=== PATIENT | male | born 2000 | race Caucasian/White ===

== ENCOUNTER 2020-12-10 09:37 | Outpatient (CLI) | payer BC | END 2020-12-10 23:59 | disposition home or self-care (01) | LOC: ROC 09:37 | PROVIDERS: ATTEND Radiology Radiation Oncology | DX: C76.0 Malignant neoplasm of head, face and neck (principal) | CPT/HCPCS: 99204; G0463 ==

== ENCOUNTER 2020-12-19 20:25 | Inpatient (IN) | payer BC ==
[~2020-12-19] VITALS: Ht 175.3 cm; Wt 80.3 kg
--- NOTE | 2020-12-19 21:13 | NUR ---
PT PRESENTS TO ED WITH DIFFICULTY SWALLOWING FROM TUMOR GROWTH. [facility] CALLED AND WANTED PT CHECKED OUT DUE TO FAST GROWTH OF TUMOR. PT IN GOWN ON GURNEY AND PLACED ON CONTINUOUS MONITORING.
--- NOTE | 2020-12-19 21:15 | NUR ---
20 G IV TO RIGHT AC STARTED, LABS DRAWN AND IVR RUNNING. PT RESTING ON [place], DENIES NEEDS AT THIS TIME.
[2020-12-19] MEDS ORDERED: SODIUM CHLORIDE 0.9% 1,000 ML IV ONE (21:30)
[2020-12-19] MEDS ORDERED: SODIUM CHLORIDE FLUSH 10ML SYR IVF ONE (21:30)
[2020-12-19] MEDS ORDERED: DEXAMETHASONE 4 MG/ML, 1ML IVPush ONE (21:30)
[2020-12-19] MEDS ORDERED: DEXAMETHASONE 4 MG/ML, 1ML ONE (21:44)
[2020-12-19 21:48] LABS: MEAN CORPUSCULAR HEMOGLOBIN 28.5 pg (27.5-34.5); MEAN CORPUSCULAR HGB CONC 33.6 g/dL (33.2-36.2); MEAN PLATELET VOLUME 9.6 fL (7.4-10.4); PLATELET COUNT 204 x10^3/uL (130-400); RED BLOOD COUNT 4.34 x10^6/uL (4.38-5.82); RED CELL DISTRIBUTION WIDTH 13.5 % (9.4-14.8)
[2020-12-19 22:01] LABS: ALANINE AMINOTRANSFERASE 188 U/L (12-78); ALBUMIN 2.4 g/dL (3.4-5.0); ANION GAP 9 mmol/L (5-15); CALCIUM 8.9 mg/dL (8.5-10.1); CHLORIDE 100 mmol/L (98-107); CREATININE 0.83 mg/dL (0.7-1.3)
[2020-12-19 22:04] LABS: ALKALINE PHOSPHATASE 555 U/L (45-117); BILIRUBIN,TOTAL 0.5 mg/dL (0.2-1.0); TOTAL PROTEIN 8.3 g/dL (6.4-8.2)
[2020-12-19 22:14] LABS: <PLATELET ESTIMATE> ADEQUATE; <RBC MORPHOLOGY> NORMAL; BAND#(MANUAL) 1.48 x10^3/uL; BANDS%(MANUAL) 14 % (0-7); LYMPH#(MANUAL) 1.38 x10^3/uL (1-3.4); LYMPHS% (MANUAL) 13 % (22-44); METAMYELOCYTES# (MANUAL) 0.42 x10^3/uL (0-0); METAMYELOCYTES% (MANUAL) 4 % (0-1); MONOS#(MANUAL) 0.42 x10^3/uL (0.3-2.7); MONOS% (MANUAL) 4 % (2-9); SEG#(MANUAL) 6.89 x10^3/uL (1.8-6.8); SEGS% (MANUAL) 65 % (42-75)
[2020-12-19 22:15] LABS: <PLT MORPHOLOGY> NORMAL PLT MORPH
--- NOTE | 2020-12-19 22:43 | NUR ---
Pt to be admitted to [facility], room 439. Report called to [facility].
[2020-12-19 22:55] VITALS: BP 119/78
[2020-12-19 22:56] VITALS: BP 119/78
[2020-12-19] MEDS ORDERED: NAPR-685 PO (23:21)
[2020-12-19] MEDS ORDERED: ALPR0.5T7 PO (23:22)
[2020-12-20] MEDS ORDERED: LABETALOL 5MG/ML, 20ML IVPush PRN
[2020-12-20] MEDS ORDERED: ONDANSETRON 2MG/ML, 2ML IVPush PRN
[2020-12-20 03:01] VITALS: BP 120/83
[2020-12-20] MEDS: DEXAMETHASONE 4 MG/ML, 1ML IVPush SCH ×4 (03:08→21:43)
[2020-12-20 08:12] LABS: MEAN CORPUSCULAR HEMOGLOBIN 28.6 pg (27.5-34.5); MEAN CORPUSCULAR HGB CONC 33.7 g/dL (33.2-36.2); MEAN PLATELET VOLUME 9.6 fL (7.4-10.4); PLATELET COUNT 228 x10^3/uL (130-400); RED BLOOD COUNT 4.39 x10^6/uL (4.38-5.82); RED CELL DISTRIBUTION WIDTH 13.3 % (9.4-14.8)
[2020-12-20 08:32] VITALS: BP 125/81
[2020-12-20 08:33] LABS: ALANINE AMINOTRANSFERASE 170 U/L (12-78); ALBUMIN 2.3 g/dL (3.4-5.0); ANION GAP 10 mmol/L (5-15); BILIRUBIN, DIRECT 0.1 mg/dL (0.1-0.2); CALCIUM 9.7 mg/dL (8.5-10.1); CHLORIDE 101 mmol/L (98-107); CREATININE 0.69 mg/dL (0.7-1.3)
[2020-12-20 08:35] LABS: ALKALINE PHOSPHATASE 514 U/L (45-117); BILIRUBIN,INDIRECT 0.3 mg/dL (0.0-2.0); BILIRUBIN,TOTAL 0.4 mg/dL (0.2-1.0); TOTAL PROTEIN 8.3 g/dL (6.4-8.2)
[2020-12-20 09:00] LABS: BAND#(MANUAL) 0.97 x10^3/uL; BANDS%(MANUAL) 7 % (0-7); BASOS#(MANUAL) 0.14 x10^3/uL (0-0.1); BASOS% (MANUAL) 1 % (0-1); EOS#(MANUAL) 0.28 x10^3/uL (0.0-0.4); EOS% (MANUAL) 2 % (1-7); LYMPH#(MANUAL) 1.52 x10^3/uL (1-3.4); LYMPHS% (MANUAL) 11 % (22-44); METAMYELOCYTES# (MANUAL) 1.24 x10^3/uL (0-0); METAMYELOCYTES% (MANUAL) 9 % (0-1); MONOS#(MANUAL) 0.14 x10^3/uL (0.3-2.7); MONOS% (MANUAL) 1 % (2-9); MYELOCYTES# (MANUAL) 0.14 x10^3/uL (0-0); MYELOCYTES% (MANUAL) 1 % (0-0); SEG#(MANUAL) 9.38 x10^3/uL (1.8-6.8); SEGS% (MANUAL) 68 % (42-75)
[2020-12-20 09:01] LABS: <PLATELET ESTIMATE> ADEQUATE; <PLT MORPHOLOGY> NORMAL PLT MORPH; <RBC MORPHOLOGY> NORMAL
[2020-12-20 13:58] VITALS: BP 133/83
[2020-12-20 18:47] VITALS: BP 124/81
[2020-12-20] MEDS: ACETAMINOPHEN 325 MG TABLET PO PRN (19:05)
[2020-12-20] MEDS ORDERED: TRAZODONE 50MG TABLET PO PRN (21:00)
[2020-12-21 01:52] VITALS: BP 142/87
[2020-12-21] MEDS: morphine SULFATE 10 MG/ML, 1ML IVPush PRN ×2 (02:56→07:32)
[2020-12-21] MEDS: DEXAMETHASONE 4 MG/ML, 1ML IVPush SCH ×4 (03:44→21:47)
[2020-12-21 06:46] VITALS: BP 122/79
[2020-12-21] MEDS ORDERED: MIDAZOLAM 1 MG/ML, 5ML ONE ×2 (10:26)
[2020-12-21] MEDS ORDERED: FENTANYL PF 100 MCG/2ML ONE (10:26)
[2020-12-21 13:13] VITALS: BP 143/81
[2020-12-21] MEDS: ACETAMINOPHEN 325 MG TABLET PO PRN (14:01)
[2020-12-21] MEDS ORDERED: ACET325T26 PO (18:17)
[2020-12-21] MEDS ORDERED: TRAZ50TA66 PO (18:17)
[2020-12-21] MEDS ORDERED: DEXA4VIA39 IVPush (18:17)
[2020-12-21] MEDS ORDERED: ALPR0.5T93 PO (18:17)
[2020-12-21] MEDS ORDERED: TRAM50TA2 PO (18:17)
[2020-12-21 18:40] VITALS: BP 135/77
[2020-12-22 00:23] VITALS: BP 136/89
[2020-12-22] MEDS: ACETAMINOPHEN 325 MG TABLET PO PRN (00:41)
[2020-12-22] MEDS: morphine SULFATE 10 MG/ML, 1ML IVPush PRN ×4 (02:41→23:11)
[2020-12-22] MEDS: DEXAMETHASONE 4 MG/ML, 1ML IVPush SCH ×4 (03:42→23:10)
[2020-12-22] MEDS: LORazepam 2 MG/ML, 1ML IVPush PRN ×2 (03:42→22:00)
[2020-12-22 07:05] VITALS: BP 123/81
[2020-12-22 13:01] VITALS: BP 133/86
[2020-12-22] MEDS: OXYcodone IR 5MG TABLET PO PRN (13:52)
[2020-12-22] MEDS: D5%-0.45NACL+KCL 20MEQ 1,000 ML IV SCH (17:58)
[2020-12-22 18:32] LABS: MEAN CORPUSCULAR HGB CONC 33.3 g/dL (33.2-36.2); MEAN PLATELET VOLUME 9.1 fL (7.4-10.4); PLATELET COUNT 279 x10^3/uL (130-400); RED BLOOD COUNT 4.93 x10^6/uL (4.38-5.82); RED CELL DISTRIBUTION WIDTH 13.8 % (9.4-14.8)
[2020-12-22 18:43] LABS: ALANINE AMINOTRANSFERASE 113 U/L (12-78); ALBUMIN 2.7 g/dL (3.4-5.0); ANION GAP 8 mmol/L (5-15); CALCIUM 8.9 mg/dL (8.5-10.1); CHLORIDE 96 mmol/L (98-107)
[2020-12-22 18:54] VITALS: BP 127/81
[2020-12-22 18:54] LABS: ALKALINE PHOSPHATASE 765 U/L (45-117); BILIRUBIN,TOTAL 0.4 mg/dL (0.2-1.0); CREATININE 0.87 mg/dL (0.7-1.3); TOTAL PROTEIN 8.2 g/dL (6.4-8.2)
[2020-12-22 19:36] LABS: <PLATELET ESTIMATE> ADEQUATE; <PLT MORPHOLOGY> NORMAL PLT MORPH; <RBC MORPHOLOGY> NORMAL; BAND#(MANUAL) 2.37 x10^3/uL; BANDS%(MANUAL) 10 % (0-7); LYMPH#(MANUAL) 2.37 x10^3/uL (1-3.4); LYMPHS% (MANUAL) 10 % (22-44); METAMYELOCYTES# (MANUAL) 2.37 x10^3/uL (0-0); METAMYELOCYTES% (MANUAL) 10 % (0-1); MONOS#(MANUAL) 0.95 x10^3/uL (0.3-2.7); MONOS% (MANUAL) 4 % (2-9); MYELOCYTES# (MANUAL) 1.19 x10^3/uL (0-0); MYELOCYTES% (MANUAL) 5 % (0-0); SEG#(MANUAL) 14.46 x10^3/uL (1.8-6.8); SEGS% (MANUAL) 61 % (42-75)
[2020-12-23 00:02] VITALS: BP 118/77
[2020-12-23] MEDS: morphine SULFATE 10 MG/ML, 1ML IVPush PRN ×2 (02:32→23:30)
[2020-12-23 04:48] LABS: MEAN CORPUSCULAR HEMOGLOBIN 28.1 pg (27.5-34.5); MEAN CORPUSCULAR HGB CONC 33.5 g/dL (33.2-36.2); MEAN PLATELET VOLUME 9.2 fL (7.4-10.4); PLATELET COUNT 272 x10^3/uL (130-400); RED BLOOD COUNT 4.83 x10^6/uL (4.38-5.82); RED CELL DISTRIBUTION WIDTH 13.7 % (9.4-14.8)
[2020-12-23 05:01] LABS: ALBUMIN 2.7 g/dL (3.4-5.0); CALCIUM 8.9 mg/dL (8.5-10.1); CHLORIDE 97 mmol/L (98-107)
[2020-12-23] MEDS: DEXAMETHASONE 4 MG/ML, 1ML IVPush SCH ×3 (05:08→16:45)
[2020-12-23] MEDS: D5%-0.45NACL+KCL 20MEQ 1,000 ML IV SCH ×2 (05:08→15:56)
[2020-12-23 05:19] LABS: ALANINE AMINOTRANSFERASE 97 U/L (12-78); ALKALINE PHOSPHATASE 957 U/L (45-117); ANION GAP 9 mmol/L (5-15); BILIRUBIN,TOTAL 0.9 mg/dL (0.2-1.0); CREATININE 0.83 mg/dL (0.7-1.3); TOTAL PROTEIN 8.1 g/dL (6.4-8.2)
[2020-12-23 05:49] LABS: <RBC MORPHOLOGY> NORMAL; BAND#(MANUAL) 3.04 x10^3/uL; BANDS%(MANUAL) 12 % (0-7); EOS#(MANUAL) 0.25 x10^3/uL (0.0-0.4); EOS% (MANUAL) 1 % (1-7); LYMPHS% (MANUAL) 15 % (22-44); METAMYELOCYTES# (MANUAL) 0.51 x10^3/uL (0-0); METAMYELOCYTES% (MANUAL) 2 % (0-1); MONOS#(MANUAL) 1.77 x10^3/uL (0.3-2.7); MONOS% (MANUAL) 7 % (2-9); MYELOCYTES# (MANUAL) 0.25 x10^3/uL (0-0); MYELOCYTES% (MANUAL) 1 % (0-0); SEG#(MANUAL) 15.69 x10^3/uL (1.8-6.8); SEGS% (MANUAL) 62 % (42-75)
[2020-12-23 05:50] LABS: <PLATELET ESTIMATE> ADEQUATE; <PLT MORPHOLOGY> NORMAL PLT MORPH
[2020-12-23 06:59] VITALS: BP 125/80
[2020-12-23] MEDS: LORazepam 2 MG/ML, 1ML IVPush PRN ×2 (09:20→16:34)
[2020-12-23] MEDS ORDERED: [UNRECOGNIZED DRUG - OTHER] IV SCH (11:30)
[2020-12-23] MEDS ORDERED: POTASSIUM CHLORIDE IV SCH ×3 (11:30)
[2020-12-23] MEDS ORDERED: MAGNESIUM SULFATE IV SCH ×3 (11:30)
[2020-12-23] MEDS ORDERED: D5W IV SCH ×2 (11:30)
[2020-12-23] MEDS ORDERED: SODIUM CHLORIDE 0.9% IV SCH ×3 (11:30→17:00)
[2020-12-23] MEDS ORDERED: FILTER 0.22 MICRON FOR MANNITOL IV PRN ×2 (12:00→16:00)
[2020-12-23 12:40] VITALS: BP 115/76
[2020-12-23] MEDS ORDERED: FOSAPREPITANT 150 MG in SODIUM CHLORIDE 0.9% 145 ML IV ONE (14:00)
[2020-12-23] MEDS ORDERED: GRANISETRON 1 MG, DEXAMETHASONE 10 MG in SODIUM CHLORIDE 0.9% 50 ML IV ONE (14:00)
[2020-12-23] MEDS ORDERED: SODIUM CHLORIDE 0.9% IV ONE ×2 (14:30→17:00)
[2020-12-23] MEDS ORDERED: CISPLATIN IV ONE (14:30)
[2020-12-23] MEDS ORDERED: ONDANSETRON 16 MG, DEXAMETHASONE 10 MG in SODIUM CHLORIDE 0.9% 50 ML IVPB ONE (16:00)
[2020-12-23] MEDS ORDERED: DIPHENHYDRAMINE 50 MG/ML, 1ML IV ONE (16:00)
[2020-12-23] MEDS ORDERED: DIPHENHYDRAMINE 50 MG/ML, 1ML IM ONE ×2 (16:00)
[2020-12-23] MEDS ORDERED: [UNRECOGNIZED DRUG - SUPPLY] IV PRN (16:00)
[2020-12-23] MEDS ORDERED: FAMOTIDINE 20 MG/2 ML IVPush ONE (16:00)
[2020-12-23] MEDS ORDERED: CARBOPLATIN IV ONE (17:00)
[2020-12-23] MEDS ORDERED: MANNITOL IV SCH (17:00)
[2020-12-23] MEDS ORDERED: PACLITAXEL 350 MG in SODIUM CHLORIDE 0.9% 500 ML IV ONE (18:00)
[2020-12-23 19:17] VITALS: BP 145/97
[2020-12-23 19:59] VITALS: BP 114/71
[2020-12-23] MEDS: OLANZAPINE 5 MG TABLET PO SCH (21:11)
[2020-12-24] MEDS: D5%-0.45NACL+KCL 20MEQ 1,000 ML IV SCH ×2 (02:31→13:57)
[2020-12-24 02:32] VITALS: BP 116/75
[2020-12-24] MEDS: morphine SULFATE 10 MG/ML, 1ML IVPush PRN ×4 (04:00→19:56)
[2020-12-24 07:54] VITALS: BP 113/73
[2020-12-24 09:03] LABS: MEAN CORPUSCULAR HEMOGLOBIN 28.2 pg (27.5-34.5); MEAN CORPUSCULAR HGB CONC 33.4 g/dL (33.2-36.2); MEAN PLATELET VOLUME 9.1 fL (7.4-10.4); PLATELET COUNT 207 x10^3/uL (130-400); RED BLOOD COUNT 4.57 x10^6/uL (4.38-5.82); RED CELL DISTRIBUTION WIDTH 13.4 % (9.4-14.8)
[2020-12-24 09:13] LABS: ALANINE AMINOTRANSFERASE 78 U/L (12-78); ALBUMIN 2.4 g/dL (3.4-5.0); ANION GAP 12 mmol/L (5-15); CALCIUM 8.3 mg/dL (8.5-10.1); CHLORIDE 100 mmol/L (98-107); CREATININE 0.83 mg/dL (0.7-1.3)
[2020-12-24 09:14] LABS: BILIRUBIN,TOTAL 1.1 mg/dL (0.2-1.0); TOTAL PROTEIN 7.3 g/dL (6.4-8.2)
[2020-12-24 09:26] LABS: METAMYELOCYTES# (MANUAL) 0.68 x10^3/uL (0-0); METAMYELOCYTES% (MANUAL) 4 % (0-1); MONOS#(MANUAL) 0.34 x10^3/uL (0.3-2.7); MONOS% (MANUAL) 2 % (2-9); SEG#(MANUAL) 11.12 x10^3/uL (1.8-6.8); SEGS% (MANUAL) 65 % (42-75)
[2020-12-24 09:27] LABS: BAND#(MANUAL) 2.22 x10^3/uL; BANDS%(MANUAL) 13 % (0-7); LYMPH#(MANUAL) 2.74 x10^3/uL (1-3.4); LYMPHS% (MANUAL) 16 % (22-44)
[2020-12-24 09:28] LABS: <PLATELET ESTIMATE> ADEQUATE; <PLT MORPHOLOGY> NORMAL PLT MORPH; <RBC MORPHOLOGY> NORMAL
[2020-12-24 09:55] LABS: ALKALINE PHOSPHATASE 999 U/L (45-117)
[2020-12-24 12:29] VITALS: BP 113/73
[2020-12-24 19:13] VITALS: BP 115/71
[2020-12-24] MEDS ORDERED: ACETAMINOPHEN 500 MG TABLET PO ONE (19:30)
[2020-12-24] MEDS: LORazepam 2 MG/ML, 1ML IVPush PRN (19:40)
[2020-12-24] MEDS: OLANZAPINE 5 MG TABLET PO SCH (21:09)
[2020-12-25] MEDS: D5%-0.45NACL+KCL 20MEQ 1,000 ML IV SCH
[2020-12-25] MEDS: morphine SULFATE 10 MG/ML, 1ML IVPush PRN ×5 (00:36→23:01)
[2020-12-25 00:41] VITALS: BP 108/70
[2020-12-25] MEDS: LORazepam 2 MG/ML, 1ML IVPush PRN ×3 (04:46→21:20)
[2020-12-25 07:33] VITALS: BP 113/74
[2020-12-25] MEDS ORDERED: ACETAMINOPHEN 500 MG TABLET PO PRN (08:00)
[2020-12-25] MEDS: DEXAMETHASONE 4 MG/ML, 1ML IVPush SCH ×2 (08:35→16:58)
[2020-12-25] MEDS ORDERED: ACETAMINOPHEN 650 MG/20.3 ML UDC ONE ×2 (08:52→09:05)
[2020-12-25] MEDS: D5%-LACTATED RINGERS 1,000 ML IV SCH ×2 (08:55→19:36)
[2020-12-25] MEDS: CEFEPIME 2 GM in DEXTROSE 5% 100 ML IV SCH ×2 (08:55→16:58)
[2020-12-25 09:00] LABS: MEAN CORPUSCULAR HEMOGLOBIN 28.2 pg (27.5-34.5); MEAN CORPUSCULAR HGB CONC 33.5 g/dL (33.2-36.2); PLATELET COUNT 171 x10^3/uL (130-400); RED BLOOD COUNT 4.22 x10^6/uL (4.38-5.82); RED CELL DISTRIBUTION WIDTH 13.1 % (9.4-14.8)
[2020-12-25] MEDS ORDERED: ACETAMINOPHEN 500 MG TABLET PO SCH (09:00)
[2020-12-25 09:05] LABS: ALANINE AMINOTRANSFERASE 125 U/L (12-78); ALBUMIN 2.2 g/dL (3.4-5.0); ANION GAP 9 mmol/L (5-15); CALCIUM 8.7 mg/dL (8.5-10.1); CHLORIDE 99 mmol/L (98-107); CREATININE 0.79 mg/dL (0.7-1.3)
[2020-12-25 09:15] LABS: ALKALINE PHOSPHATASE 967 U/L (45-117); BILIRUBIN,TOTAL 0.9 mg/dL (0.2-1.0); TOTAL PROTEIN 6.8 g/dL (6.4-8.2)
[2020-12-25 09:50] LABS: BAND#(MANUAL) 0.67 x10^3/uL; BANDS%(MANUAL) 6 % (0-7); LYMPH#(MANUAL) 1.79 x10^3/uL (1-3.4); LYMPHS% (MANUAL) 16 % (22-44); METAMYELOCYTES# (MANUAL) 1.01 x10^3/uL (0-0); METAMYELOCYTES% (MANUAL) 9 % (0-1); MONOS#(MANUAL) 0.22 x10^3/uL (0.3-2.7); MONOS% (MANUAL) 2 % (2-9); SEGS% (MANUAL) 67 % (42-75)
[2020-12-25 09:51] LABS: <PLATELET ESTIMATE> ADEQUATE; <RBC MORPHOLOGY> NORMAL; LARGE PLATELETS 1+
[2020-12-25] MEDS: POLYETHYLENE GLYCOL 17 GM PACKET PO SCH ×2 (12:20→21:18)
[2020-12-25 13:12] LABS: MICROSCOPIC INDICATED
[2020-12-25 13:36] VITALS: BP 108/72
[2020-12-25] MEDS ORDERED: ACETAMINOPHEN 650 MG/20.3 ML UDC PO PRN (14:00)
[2020-12-25 19:55] VITALS: BP 115/74
[2020-12-25] MEDS: OLANZAPINE 5 MG TABLET PO SCH (21:20)
[2020-12-26] MEDS: DEXAMETHASONE 4 MG/ML, 1ML IVPush SCH ×3 (01:01→17:45)
[2020-12-26] MEDS: CEFEPIME 2 GM in DEXTROSE 5% 100 ML IV SCH ×3 (01:03→17:44)
[2020-12-26 02:11] VITALS: BP 117/71
[2020-12-26] MEDS: morphine SULFATE 10 MG/ML, 1ML IVPush PRN ×2 (02:17→21:02)
[2020-12-26] MEDS: LORazepam 2 MG/ML, 1ML IVPush PRN ×2 (04:56→20:24)
[2020-12-26] MEDS: D5%-LACTATED RINGERS 1,000 ML IV SCH ×2 (04:56→15:22)
[2020-12-26 07:20] VITALS: BP 112/71
[2020-12-26 09:07] LABS: MEAN CORPUSCULAR HEMOGLOBIN 28.4 pg (27.5-34.5); MEAN CORPUSCULAR HGB CONC 33.7 g/dL (33.2-36.2); MEAN PLATELET VOLUME 8.9 fL (7.4-10.4); PLATELET COUNT 158 x10^3/uL (130-400); RED BLOOD COUNT 4.03 x10^6/uL (4.38-5.82)
[2020-12-26 09:16] LABS: ALBUMIN 2.2 g/dL (3.4-5.0); ANION GAP 7 mmol/L (5-15); CALCIUM 8.6 mg/dL (8.5-10.1); CHLORIDE 99 mmol/L (98-107)
[2020-12-26 09:27] LABS: ALANINE AMINOTRANSFERASE 210 U/L (12-78); ALKALINE PHOSPHATASE 859 U/L (45-117); BILIRUBIN,TOTAL 0.5 mg/dL (0.2-1.0); CREATININE 0.55 mg/dL (0.7-1.3); TOTAL PROTEIN 6.6 g/dL (6.4-8.2)
[2020-12-26 09:50] LABS: <PLATELET ESTIMATE> ADEQUATE; <PLT MORPHOLOGY> NORMAL PLT MORPH; <RBC MORPHOLOGY> NORMAL; BAND#(MANUAL) 0.36 x10^3/uL; BANDS%(MANUAL) 4 % (0-7); EOS#(MANUAL) 0.09 x10^3/uL (0.0-0.4); EOS% (MANUAL) 1 % (1-7); LYMPH#(MANUAL) 1.08 x10^3/uL (1-3.4); LYMPHS% (MANUAL) 12 % (22-44); METAMYELOCYTES# (MANUAL) 0.18 x10^3/uL (0-0); METAMYELOCYTES% (MANUAL) 2 % (0-1); MONOS#(MANUAL) 0.27 x10^3/uL (0.3-2.7); MONOS% (MANUAL) 3 % (2-9); SEG#(MANUAL) 7.02 x10^3/uL (1.8-6.8); SEGS% (MANUAL) 78 % (42-75)
[2020-12-26] MEDS: POLYETHYLENE GLYCOL 17 GM PACKET PO SCH ×2 (10:12→21:02)
[2020-12-26 13:43] VITALS: BP 114/69
[2020-12-26 19:15] VITALS: BP 124/79
[2020-12-26] MEDS: OLANZAPINE 5 MG TABLET PO SCH (21:02)
[2020-12-27 00:12] VITALS: BP 125/77
[2020-12-27] MEDS: morphine SULFATE 10 MG/ML, 1ML IVPush PRN ×6 (00:16→20:40)
[2020-12-27] MEDS: D5%-LACTATED RINGERS 1,000 ML IV SCH ×3 (01:07→22:44)
[2020-12-27] MEDS: DEXAMETHASONE 4 MG/ML, 1ML IVPush SCH ×3 (01:10→19:28)
[2020-12-27] MEDS: CEFEPIME 2 GM in DEXTROSE 5% 100 ML IV SCH ×3 (01:10→19:28)
[2020-12-27] MEDS: LORazepam 2 MG/ML, 1ML IVPush PRN ×3 (03:09→22:42)
[2020-12-27] MEDS ORDERED: BUPIVACAINE/PF 0.5% ONE (06:46)
[2020-12-27] MEDS ORDERED: EPINEPHRINE 1 MG/ML, 1ML ONE (06:46)
[2020-12-27 07:19] VITALS: BP 108/68
[2020-12-27] MEDS: POLYETHYLENE GLYCOL 17 GM PACKET PO SCH ×2 (07:45→20:33)
[2020-12-27] MEDS ORDERED: CHLORHEXIDINE 15 ML UDC ONE ×2 (08:21→08:53)
[2020-12-27 08:38] LABS: MEAN CORPUSCULAR HEMOGLOBIN 28.6 pg (27.5-34.5); MEAN CORPUSCULAR HGB CONC 34.4 g/dL (33.2-36.2); MEAN PLATELET VOLUME 8.8 fL (7.4-10.4); PLATELET COUNT 167 x10^3/uL (130-400); RED BLOOD COUNT 4.08 x10^6/uL (4.38-5.82); RED CELL DISTRIBUTION WIDTH 13.3 % (9.4-14.8)
[2020-12-27 08:49] LABS: ALBUMIN 2.1 g/dL (3.4-5.0); ANION GAP 8 mmol/L (5-15); CALCIUM 7.9 mg/dL (8.5-10.1); CHLORIDE 100 mmol/L (98-107)
[2020-12-27 09:03] LABS: ALANINE AMINOTRANSFERASE 326 U/L (12-78); ALKALINE PHOSPHATASE 910 U/L (45-117); BILIRUBIN,TOTAL 0.5 mg/dL (0.2-1.0); CREATININE 0.57 mg/dL (0.7-1.3); TOTAL PROTEIN 6.7 g/dL (6.4-8.2)
[2020-12-27] MEDS ORDERED: MIDAZOLAM 1 MG/ML, 2ML ONE (09:10)
[2020-12-27] MEDS ORDERED: FENTANYL PF 100 MCG/2ML ONE ×2 (09:10→10:33)
[2020-12-27 09:11] LABS: BAND#(MANUAL) 0.77 x10^3/uL; BANDS%(MANUAL) 10 % (0-7); LYMPH#(MANUAL) 1.08 x10^3/uL (1-3.4); LYMPHS% (MANUAL) 14 % (22-44); METAMYELOCYTES# (MANUAL) 0.31 x10^3/uL (0-0); METAMYELOCYTES% (MANUAL) 4 % (0-1); MONOS#(MANUAL) 0.15 x10^3/uL (0.3-2.7); MONOS% (MANUAL) 2 % (2-9); MYELOCYTES# (MANUAL) 0.08 x10^3/uL (0-0); MYELOCYTES% (MANUAL) 1 % (0-0); SEG#(MANUAL) 5.31 x10^3/uL (1.8-6.8); SEGS% (MANUAL) 69 % (42-75)
[2020-12-27 09:12] LABS: <PLATELET ESTIMATE> ADEQUATE; <PLT MORPHOLOGY> NORMAL PLT MORPH; <RBC MORPHOLOGY> NORMAL
[2020-12-27] MEDS ORDERED: SUGAMMADEX 200 MG/2 ML IVPush ONE (10:02)
[2020-12-27] MEDS ORDERED: SUCCINYLCHOLINE 20 MG/ML, 10ML ONE (10:05)
[2020-12-27] MEDS ORDERED: NEOSTIGMINE 1 MG/ML, 10ML ONE (10:05)
[2020-12-27] MEDS ORDERED: ONDANSETRON 2MG/ML, 2ML ONE (10:05)
[2020-12-27] MEDS ORDERED: ROCURONIUM 10MG/ML,5ML ONE (10:05)
[2020-12-27] MEDS ORDERED: CEFAZOLIN 1,000 MG ONE (10:05)
[2020-12-27] MEDS ORDERED: PROPOFOL 10 MG/ML, 20ML ONE (10:05)
[2020-12-27] MEDS ORDERED: GLYCOPYRROLATE 0.2MG/1ML, 5ML ONE (10:05)
[2020-12-27] MEDS ORDERED: hydrALAzine 20 MG/ML, 1ML IV PRN (10:30)
[2020-12-27] MEDS ORDERED: DIAZEPAM 5 MG/ML, 2ML IVPush PRN (10:30)
[2020-12-27] MEDS ORDERED: PROMETHAZINE 25 MG/ML, 1ML IV PRN (10:30)
[2020-12-27] MEDS ORDERED: KETOROLAC 30 MG/1 ML IV PRN (10:30)
[2020-12-27] MEDS ORDERED: OXYcodone 5 MG/5 ML ORAL.SOL UDC PO PRN (10:30)
[2020-12-27] MEDS ORDERED: HYDROmorphone 2 MG/ML, 1ML IVPush PRN (10:30)
[2020-12-27] MEDS ORDERED: MEPERIDINE/PF 25MG/0.5ML IVPush PRN (10:30)
[2020-12-27] MEDS ORDERED: ALBUTEROL SULFATE 2.5 MG/3 ML NPPB PRN (10:30)
[2020-12-27] MEDS ORDERED: ACETAMINOPHEN 325 MG TABLET PO PRN (10:30)
[2020-12-27] MEDS: FENTANYL PF 100 MCG/2ML IV PRN ×2 (10:35→10:43)
[2020-12-27 12:44] VITALS: BP 119/71
[2020-12-27 18:38] VITALS: BP 108/65
[2020-12-27] MEDS: OLANZAPINE 5 MG TABLET PO SCH (20:34)
[2020-12-28] MEDS: morphine SULFATE 10 MG/ML, 1ML IVPush PRN ×4 (00:17→19:47)
[2020-12-28 02:15] VITALS: BP 111/69
[2020-12-28] MEDS: CEFEPIME 2 GM in DEXTROSE 5% 100 ML IV SCH ×3 (03:23→19:38)
[2020-12-28] MEDS: DEXAMETHASONE 4 MG/ML, 1ML IVPush SCH ×3 (03:24→19:38)
[2020-12-28] MEDS: POLYETHYLENE GLYCOL 17 GM PACKET PO SCH ×2 (08:03→19:38)
[2020-12-28 08:16] VITALS: BP 111/70
[2020-12-28 08:57] LABS: MEAN CORPUSCULAR HEMOGLOBIN 28.1 pg (27.5-34.5); MEAN CORPUSCULAR HGB CONC 33.7 g/dL (33.2-36.2); MEAN PLATELET VOLUME 8.8 fL (7.4-10.4); PLATELET COUNT 141 x10^3/uL (130-400); RED BLOOD COUNT 4.05 x10^6/uL (4.38-5.82); RED CELL DISTRIBUTION WIDTH 13.1 % (9.4-14.8)
[2020-12-28 09:08] LABS: ALANINE AMINOTRANSFERASE 211 U/L (12-78); ALBUMIN 2.1 g/dL (3.4-5.0); ANION GAP 7 mmol/L (5-15); CHLORIDE 100 mmol/L (98-107); CREATININE 0.52 mg/dL (0.7-1.3)
[2020-12-28 09:18] LABS: ALKALINE PHOSPHATASE 884 U/L (45-117); BILIRUBIN,TOTAL 0.6 mg/dL (0.2-1.0); TOTAL PROTEIN 6.2 g/dL (6.4-8.2)
[2020-12-28] MEDS: D5%-LACTATED RINGERS 1,000 ML IV SCH ×2 (09:20→19:39)
[2020-12-28 09:31] LABS: BAND#(MANUAL) 0.81 x10^3/uL; BANDS%(MANUAL) 18 % (0-7); EOS#(MANUAL) 0.05 x10^3/uL (0.0-0.4); EOS% (MANUAL) 1 % (1-7); LYMPH#(MANUAL) 0.81 x10^3/uL (1-3.4); LYMPHS% (MANUAL) 18 % (22-44); METAMYELOCYTES# (MANUAL) 0.14 x10^3/uL (0-0); METAMYELOCYTES% (MANUAL) 3 % (0-1); MONOS#(MANUAL) 0.14 x10^3/uL (0.3-2.7); MONOS% (MANUAL) 3 % (2-9); SEG#(MANUAL) 2.57 x10^3/uL (1.8-6.8); SEGS% (MANUAL) 57 % (42-75)
[2020-12-28 09:32] LABS: <PLATELET ESTIMATE> ADEQUATE; <PLT MORPHOLOGY> NORMAL PLT MORPH; <RBC MORPHOLOGY> NORMAL
[2020-12-28] MEDS: LORazepam 2 MG/ML, 1ML IVPush PRN (11:24)
[2020-12-28 15:18] VITALS: BP 113/74
[2020-12-28 19:08] VITALS: BP 118/72
[2020-12-28] MEDS: OXYcodone IR 5MG TABLET PO PRN (23:02)
[2020-12-29] MEDS: DEXAMETHASONE 4 MG/ML, 1ML IVPush SCH ×2 (03:14→12:45)
[2020-12-29 03:16] VITALS: BP 113/68
[2020-12-29] MEDS: LORazepam 2 MG/ML, 1ML IVPush PRN (03:23)
[2020-12-29 05:34] LABS: MEAN CORPUSCULAR HEMOGLOBIN 28.2 pg (27.5-34.5); MEAN CORPUSCULAR HGB CONC 33.7 g/dL (33.2-36.2); MEAN PLATELET VOLUME 8.9 fL (7.4-10.4); PLATELET COUNT 154 x10^3/uL (130-400); RED BLOOD COUNT 4.26 x10^6/uL (4.38-5.82); RED CELL DISTRIBUTION WIDTH 13.4 % (9.4-14.8)
[2020-12-29 05:41] LABS: ALANINE AMINOTRANSFERASE 204 U/L (12-78); ALBUMIN 2.3 g/dL (3.4-5.0); ANION GAP 7 mmol/L (5-15); CALCIUM 8.3 mg/dL (8.5-10.1); CHLORIDE 99 mmol/L (98-107); CREATININE 0.54 mg/dL (0.7-1.3)
[2020-12-29 05:54] LABS: ALKALINE PHOSPHATASE 945 U/L (45-117); BILIRUBIN,TOTAL 0.4 mg/dL (0.2-1.0); TOTAL PROTEIN 6.8 g/dL (6.4-8.2)
[2020-12-29] MEDS: D5%-LACTATED RINGERS 1,000 ML IV SCH (05:58)
[2020-12-29 06:25] LABS: BAND#(MANUAL) 0.55 x10^3/uL; BANDS%(MANUAL) 10 % (0-7); LYMPH#(MANUAL) 0.61 x10^3/uL (1-3.4); LYMPHS% (MANUAL) 11 % (22-44); METAMYELOCYTES# (MANUAL) 0.22 x10^3/uL (0-0); METAMYELOCYTES% (MANUAL) 4 % (0-1); MONOS#(MANUAL) 0.11 x10^3/uL (0.3-2.7); MONOS% (MANUAL) 2 % (2-9); MYELOCYTES# (MANUAL) 0.06 x10^3/uL (0-0); MYELOCYTES% (MANUAL) 1 % (0-0); SEG#(MANUAL) 3.96 x10^3/uL (1.8-6.8); SEGS% (MANUAL) 72 % (42-75)
[2020-12-29 06:26] LABS: <PLATELET ESTIMATE> ADEQUATE; <PLT MORPHOLOGY> NORMAL PLT MORPH; <RBC MORPHOLOGY> NORMAL
[2020-12-29 07:28] VITALS: BP 116/72
[2020-12-29] MEDS: POLYETHYLENE GLYCOL 17 GM PACKET PO SCH (09:03)
[2020-12-29] MEDS ORDERED: PRED10TA PO (11:32)
[2020-12-29 13:37] VITALS: BP 116/76
== END 2020-12-29 16:38 | disposition home health service (06) | DRG 147 ==
LOC: ED 21:19 → EDIP 21:57 → 4NW 22:50
PROVIDERS: ADMIT Family Medicine; ATTEND Internal Medicine
PROC: 07DR3ZX Extraction of Iliac Bone Marrow, Percutaneous Approach, Diagnostic (ICD-10-PCS; 2020-12-23)
PROC: 0DH64UZ Insertion of Feeding Device into Stomach, Percutaneous Endoscopic Approach (ICD-10-PCS; 2020-12-27)
PROC: 3E0G76Z Introduction of Nutritional Substance into Upper GI, Via Natural or Artificial Opening (ICD-10-PCS; principal; 2020-12-27 10:00)
DX: C07 Malignant neoplasm of parotid gland (principal); E87.1 Hypo-osmolality and hyponatremia; E44.0 Moderate protein-calorie malnutrition; C76.0 Malignant neoplasm of head, face and neck; C73 Malignant neoplasm of thyroid gland; D64.9 Anemia, unspecified; D72.825 Bandemia; K59.00 Constipation, unspecified; Z20.822 Contact with and (suspected) exposure to COVID-19; Z80.3 Family history of malignant neoplasm of breast; Z85.850 Personal history of malignant neoplasm of thyroid; R79.89 Other specified abnormal findings of blood chemistry; R94.5 Abnormal results of liver function studies
CPT/HCPCS: 36415; 74230; 76870; 84145; 87806; 96374; 99285; J7121; S0020; 38222; 71045; 77012; 77300; 77301; 77336; 77338; 77386; 80048; 80053; 80074; 80076; 81001; 83605; 83615; 83735; 84100; 84550; 85025; 85097; 86592; 86706; 86803; 87040; 87340; 87491; 87591; 88237; 88264; 88280; 88305; 88311; 88341; 88342; 99156; 99157; B4087; G0378; J0171; J0690; J1100; J2250; J2405; J2704; J2710; J3010; J3475; J3480; J9045; J9267; U0005; G0475; J0330; J1200; J2060; J2270; J7030; J7040; J7050; U0003

== ENCOUNTER → 2021-01-12 | Day surgery (SDC) | payer BC ==
[~2021-01-12] VITALS: Ht 177.8 cm; Wt 77.4 kg
[~2021-01-12] MED LIST: ACET325T26 PO; ALPR0.5T7 PO; ALPR0.5T93 PO; CEFAZOLIN PMX 1GM/50ML 50 ML IV ONE; DEXA4VIA39 IVPush; FENTANYL PF 100 MCG/2ML ONE; FLUMAZENIL 0.1 MG/1 ML, 5ML ONE; LABETALOL 5MG/ML, 20ML ONE; LIDOCAINE 1%, 20ML ONE; MIDAZOLAM 1 MG/ML, 5ML ONE; NALOXONE 1 MG/ML, 2ML ONE; NAPR-685 PO; PRED10TA PO; SODIUM CHLORIDE 0.9% 1,000 ML IV SCH; TRAM50TA2 PO; TRAZ50TA66 PO
[2021-01-12 10:54] VITALS: BP 109/65
== END | disposition home or self-care (01) ==
LOC: OUT 10:15
PROVIDERS: ATTEND Internal Medicine Hematology & Oncology
DX: Z45.2 Encounter for adjustment and management of vascular access device (principal); C08.0 Malignant neoplasm of submandibular gland; F12.90 Cannabis use, unspecified, uncomplicated; Z79.899 Other long term (current) drug therapy; Z72.89 Other problems related to lifestyle
CPT/HCPCS: 36561; 76937; 77001; 93005; 99156; 99157; C1788; J0690; J1642; J2250; J3010; J7030; J2310

== ENCOUNTER → 2021-01-31 | Outpatient (CLI) | payer BC ==
[~2021-01-31] MED LIST changes: -CEFAZOLIN PMX 1GM/50ML 50 ML IV ONE; -FENTANYL PF 100 MCG/2ML ONE; -FLUMAZENIL 0.1 MG/1 ML, 5ML ONE; -LABETALOL 5MG/ML, 20ML ONE; -LIDOCAINE 1%, 20ML ONE; -MIDAZOLAM 1 MG/ML, 5ML ONE; -NALOXONE 1 MG/ML, 2ML ONE; -SODIUM CHLORIDE 0.9% 1,000 ML IV SCH
== END | disposition home or self-care (01) ==
LOC: ROC 08:05
PROVIDERS: ATTEND Radiology Radiation Oncology
DX: Z08 Encounter for follow-up examination after completed treatment for malignant neoplasm (principal); C76.0 Malignant neoplasm of head, face and neck; E87.1 Hypo-osmolality and hyponatremia; Z79.899 Other long term (current) drug therapy; Z72.89 Other problems related to lifestyle
CPT/HCPCS: 99212; G0463